=== PATIENT | female | born 1995 ===

== ENCOUNTER 2020-04-12 19:00 | Inpatient (IN) | payer BC ==
[~2020-04-12] VITALS: Ht 180.3 cm; Wt 77.1 kg
[2020-04-12] MEDS ORDERED: PEPCID AC20 MG PO (19:11)
[2020-04-12 20:12] VITALS: BP 124/76; Ht 180.3 cm; Wt 77.1 kg
[2020-04-12 20:12] LABS: HEMATOCRIT 34.5 % (36.0-48.0); HEMOGLOBIN 11.2 g/dL (12-16); MCH 27.5 pg (26.0-34.0); MCHC 32.5 g/dL (31.0-37.0); MCV 84.6 fL (80.0-100.0); MEAN PLATELET VOLUME 10.4 fL (7.4-10.4); RBC 4.08 10x6/uL (4.00-5.40); RDW 12.5 % (11.5-14.5); WBC 10.9 10x3/uL (4.8-10.8)
[2020-04-13 01:12] LABS: UDS - AMPHET NEGATIVE QUAL (NEGATIVE); UDS - BARB NEGATIVE QUAL (NEGATIVE); UDS - BENZO NEGATIVE QUAL (NEGATIVE); UDS - COCAINE NEGATIVE QUAL (NEGATIVE); UDS - OPIATE NEGATIVE QUAL (NEGATIVE); UDS - PCP NEGATIVE QUAL (NEGATIVE); UDS - THC NEGATIVE QUAL (NEGATIVE)
[2020-04-13 08:27] LABS: CALC OSMOLALITY 264 mosm/kg (275-300); CALCIUM 8.3 mg/dL (8.5-10.1); CARBON DIOXIDE 26.7 mmol/L (21.0-32.0); CHLORIDE - SERUM 104 mmol/L (98-107); CREATININE - SERUM 0.7 mg/dL (0.6-1.3); GLUCOSE 83 mg/dL (74-106); POTASSIUM - SERUM 3.7 mmol/L (3.5-5.1); SODIUM 134 mmol/L (136-145); UREA NITROGEN 7 mg/dL (7-18); eGFR NON AFRICAN AMERICAN > 90 mL/min (90-120)
[2020-04-13 08:33] LABS: ALBUMIN 2.7 g/dL (3.4-5.0); ALKALINE PHOSPHATASE 158 U/L (30-120); ALT (SGPT) 17 U/L (10-68); BILIRUBIN - DIRECT 0.07 mg/dL (0.00-0.30); BILIRUBIN - INDIRECT 0.12 mg/dL (0.00-1.00); BILIRUBIN - TOTAL 0.19 mg/dL (0.2-1.3); PROTEIN - SERUM 6.6 g/dL (6.4-8.2); URIC ACID 2.5 mg/dL (2.6-7.2)
[2020-04-14 07:18] LABS: RAPID PLASMA REAGIN Non Reactive (Non Reactive)
[2020-04-14 22:11] VITALS: BP 128/73
--- NOTE | 2020-04-14 22:20 | NUR ---
ASSISTED UP TO BR, VOIDED 100 ML BLOOD TINGED URINE, STEADY GAIT, PERICARE GIVEN, ICE PACK APPLIED TO THEE AREA. CLEAN GOWN GIVEN, AMBULATED TO ROOM 1257 FOR POST STAY. PAIN MEDICATION OFFERED, REFUSED PER PT. THEE CARE INSTRUCTIONS GIVEN AND ACKNOWLEDGED. INSTRUCTED TO ALLOW FOR MEASURE OF NEXT VOID. HAT PLACED IN TOILET
--- NOTE | 2020-04-14 23:37 | NUR ---
room check, resting quietly in right lateral position, respirations deep and unlabored, w/o signs of distress. did not disturb
--- NOTE | 2020-04-15 00:30 | NUR ---
assisted up to br, voided 700 ml clear yellow urine, labia moderately swollen, mark care completed and ice pack applied, fundus firm, lochia scant, pain med offered and refused at this time.
[2020-04-15 04:52] LABS: HEMATOCRIT 36.7 % (36.0-48.0); HEMOGLOBIN 11.8 g/dL (12-16); MCH 27.3 pg (26.0-34.0); MCHC 32.2 g/dL (31.0-37.0); MEAN PLATELET VOLUME 11.1 fL (7.4-10.4); RBC 4.32 10x6/uL (4.00-5.40); RDW 12.6 % (11.5-14.5); WBC 17.8 10x3/uL (4.8-10.8)
--- NOTE | 2020-04-15 09:00 | NUR ---
AM ASSESSMENT COMPLETED CHARTED ON FLOWSHEE, RATES PAIN AT 0/10. SHE ALSO DENIES CLOTS WITH VOIDS AND STATES HER BLEEDING IS LESS THAN MONTHLY PERIODS. SALINE LOCK TO LEFT FOREARM THAT IS PATENT WITH NO REDNESS, FLUSHED EASILY WITH 5ML NS. TOWELS TO BATHROOM AND PT UP TO SHOWER. IN NURSERY.
--- NOTE | 2020-04-15 09:45 | NUR ---
SALINE LOCK REMOVED WITH CATH INTACT. PT RATES PAIN AT 0/10. LARGE ICE WATER REQUESTED AND DENIES ANY OTHER NEEDS AT THIS TIME.
--- NOTE | 2020-04-15 11:45 | NUR ---
RATES PAIN AT 0/10. IN CRIB AT BEDSIDE. CALL LIGHT IN REACH.
--- NOTE | 2020-04-15 15:08 | NUR ---
AMB IN HALLS WITH INFANT IN CRIB. PAIN 0/10 AND HAS NO NEEDS FOR NURSE AT THIS TIME.
--- NOTE | 2020-04-15 17:02 | MORECARE ---
CASE MANAGEMENT DISCHARGE SUMMARY PATIENT: REIC MEAD UNIT: [id number] ADM DATE: 04/12/20 AGE: 25 : [birth year] SEX: F ROOM/BED: D.1257 AUTHOR: KWAN CARMICHAEL PHYSICIAN: REFERRING PHYSICIAN: TAMARA WINN MD DATE OF SERVICE: 04/15/20 Discharge Plan Patient Name: ERIC MEAD Facility: [facility]:[place] : 1995 Planned Disposition: Home Anticipated Discharge Date: Discharge Date: Expected LOS: Initial Reviewer: [email or web address] Initial Review Date: 04/12/2020 Generated: 04/15/20 6:01 pm Patient Name: ERIC MEAD Page [phone] at 1702 All edits/amendments must be made on the electronic document DICTATION DATE: 04/15/201700 HOT SAW OPERATOR: WARD 04/15/201700 RPT#: [id number] DC DATE: STATUS: ADM IN [facility] [address] [place] [address] END OF REPORT
--- NOTE | 2020-04-15 17:30 | NUR ---
ROUNDS MADE, INFANT AT BEDSIDE, SPOUSE PRESENT. PT RATES PAIN AT 0/10 AND HAS NO NEEDS. CALL LIGHT IN REACH.
--- NOTE | 2020-04-15 19:00 | NUR ---
RECEIVED SHIFT REPORT FROM SIM HONG RN
--- NOTE | 2020-04-15 19:15 | NUR ---
PT AMB TO NSY AT THIS TIME, INFORMED PT THAT I WILL BE IN SHORTLY TO DO ASSESSMENT, PT VERBALIZES UNERSTANDING, DENIES NEEDS AT THIS TIME
[2020-04-15 19:30] VITALS: BP 117/86
--- NOTE | 2020-04-15 19:30 | NUR ---
PT BACK IN ROOM, ASSESSMENT PER FLOW SHEET, VS OBTAINED, FF, ML, U/2, LITE BLEEDING NOTED WITH NO CLOTS, PT REPORTS FLATUS, BM TODAY AND VOIDING WITH NO DIFFICULTY, PT INST ON AND VERBALIZES UNDERSTANDING OF THEE CARED, FRESH H20 SERVED, TRASH REMOVED, PT DENIES FURTHER NEEDS OR PAIN
--- NOTE | 2020-04-15 20:46 | NUR ---
PT , ADM REGLAN PO PER MD ORDERS, SEE EMAR, PT DENIES NEEDS OR PAIN
--- NOTE | 2020-04-15 21:23 | NUR ---
PT AMB TO BULL GANG SUPERVISOR, GAIT STEADY, AMB TO [facility], BACK TO ROOM
--- NOTE | 2020-04-15 22:13 | NUR ---
PT AMBS TO AUDIO VIDEO TECHNICIAN, REQUESTED AND PROVIDED SHIRT AND BLANKET, DENIES FURTHER NEEDS OR PAIN
--- NOTE | 2020-04-16 00:20 | NUR ---
PT RESTING AT THIS TIME, IN OPEN CRIB CART NEXT TO FOB ON COUCH, PT DENIES NEEDS OR PAIN AT THIS TIME
--- NOTE | 2020-04-16 02:07 | NUR ---
PT AMB, GAIT STEADY, TO [facility]MENT [facility], REPORTS THAT SHE GAVE MYLICON DROPS, BREAST FED FOR 30 MINUTES, AND IS DOING BETTER, PT DENIES FURTHER NEEDS OR PAIN, PT BACK TO ROOM, FOB IN ROOM WITH INFANT
--- NOTE | 2020-04-16 03:50 | NUR ---
PT RESTING WITH EYES CLOSED, AROUSES TO SOFT VERBAL STIMULATION, ADM REGLAN PER MD ORDERS, SEE EMAR, PT DENIES NEEDS OR PAIN AT THIS TIME, IN NSY, FOB ASLEEP ON COUCH
[2020-04-16 06:45] VITALS: BP 111/62
--- NOTE | 2020-04-16 06:45 | NUR ---
ASSESSMENT PER FLOW SHEET, VS OBTAINED, FF, ML, U/S, PT REPORTS LITE BLEEDING WITH NO CLOTS, REPORTS FLATUS, BM YESTERDAY AND VOIDING WITH NO DIFFICULTY, PT DENIES NEEDS OR PAIN AT THIS TIME, IN OPEN CRIB CART AT BEDSIDE, AND FOB ASLEEP ON COUCH
--- NOTE | 2020-04-16 08:58 | NUR ---
RN TO PT BS. PT SITTING IN BED . 0900 DOSE OF REGLAN PROVIDED TO PT AT THIS TIME. PT DENIES ANY FURTHER NEEDS. BED IN LOW POSITION, SIDE RAILS UP TIMES 2, CALL LIGHT AND PHONE IN REACH. INFANT REMAINS AT PT BS FOR COUPLET CARE. WILL CONT TO MONITOR PT STATUS.
--- NOTE | 2020-04-16 10:48 | NUR ---
RN TO PT BS FOR ROUNDS. PT RESTING IN BED IN RIGHT LATERAL POSITION, WITH EYES CLOSED, IN NO ACUTE DISTRESS. RESPIRATIONS EVEN AND UNLABORED. SO AT PT BS HOLDING INFANT. SO DENIES ANY NEEDS AT THIS TIME. BED IN LOW POSITION, SIDE RAILS UP TIMES 2, CALL LIGHT AND PHONE IN REACH. WILL CONT TO MONITOR PT STATUS.
--- NOTE | 2020-04-16 15:28 | NUR ---
tdap vaccine given per pt request to chio, tolerates procedure well. pt smiling, nad noted.
--- NOTE | 2020-04-16 15:30 | NUR ---
discharge instructions reviewed with pt and pt spouse, handouts provided for review, on inquiry md phones in prescription to [facility] on [address] in [place] for reglan every 6 hours and this information relayed to pt, no other needs voiced, pt voices understanding of all information provided, continue to monitor.
--- NOTE | 2020-04-16 16:54 | NUR ---
rounds completed, nad noted, denies concerns/needs, s.o. at bedside providing assist prn, bonding well with . continue couplet care.
--- NOTE | 2020-04-16 18:08 | NUR ---
rounds completed, nad noted, denies needs/concerns. ambulatory in room.
--- NOTE | 2020-04-18 09:06 | MORECARE ---
CASE MANAGEMENT DISCHARGE SUMMARY PATIENT: ERIC MEAD UNIT: [id number] ADM DATE: 04/12/20 AGE: 25 : [birth year] SEX: F ROOM/BED: D.1257 AUTHOR: KWAN CARMICHAEL PHYSICIAN: REFERRING PHYSICIAN: TAMARA WINN MD DATE OF SERVICE: 04/18/20 Discharge Plan Patient Name: ERIC MEAD [facility] [facility] 1995 Planned Disposition: Home Anticipated Discharge Date: Discharge Date: 04/16/2020 Expected LOS: Initial Reviewer: [email or web address] Initial Review Date: 04/12/2020 Generated: 04/18/20 10:06 am Last DP export: 04/15/20 4:02 p Patient Name: ERIC MEAD Page [phone] at 0906 All edits/amendments must be made on the electronic document DICTATION DATE: 04/18/20905 ACCOUNTING RECRUITER: DM 04/18/20905 RPT#: [id number] DC DATE:04/16/20 STATUS: DIS IN [facility] [address] [place] [address] END OF REPORT
== END 2020-04-16 19:00 | disposition home or self-care (01) | DRG 807 ==
LOC: D.LD 19:00
PROVIDERS: ADMIT Obstetrics & Gynecology; ATTEND Obstetrics & Gynecology
PROC: 0HQ9XZZ Repair Perineum Skin, External Approach (ICD-10-PCS; principal; 2020-04-14)
PROC: 10E0XZZ Delivery of Products of Conception, External Approach (ICD-10-PCS; 2020-04-14)
PROC: 3E033VJ Introduction of Other Hormone into Peripheral Vein, Percutaneous Approach (ICD-10-PCS; 2020-04-14)
PROC: 10907ZC Drainage of Amniotic Fluid, Therapeutic from Products of Conception, Via Natural or Artificial Opening (ICD-10-PCS; 2020-04-14)
DX: O13.4 Gestational [pregnancy-induced] hypertension without significant proteinuria, complicating childbirth (principal); Z37.0 Single live birth; Z3A.37 37 weeks gestation of pregnancy; O70.0 First degree perineal laceration during delivery; O99.824 Streptococcus B carrier state complicating childbirth